=== PATIENT | male | born 1980 | race African-American/Black ===

== ENCOUNTER 2023-05-08 05:27 | Emergency (ER) | payer SELFPAY ==
[2023-05-08 05:28] VITALS: BP 203/106; PULSE 120; RESP 20; TEMP 98.1
== END 2023-05-08 05:58 | disposition home or self-care (01) ==
LOC: ER 05:27
DX: Z00.00 Encounter for general adult medical examination without abnormal findings (principal); F15.10 Other stimulant abuse, uncomplicated
CPT/HCPCS: 99283